=== PATIENT | female | born 1965 | race American Indian/Alaskan Native ===

== ENCOUNTER 2017-01-30 12:50 | Outpatient (CLI) | payer MEDICAID ==
[2017-01-30 13:21] LABS: Urine Drugs of Abuse Note Disclamer
== END 2017-01-30 12:51 | disposition home or self-care (01) ==
LOC: LAB 12:50
PROVIDERS: ATTEND Pain Medicine Interventional Pain Medicine
DX: Z51.81 Encounter for therapeutic drug level monitoring (principal); Z79.899 Other long term (current) drug therapy; Z79.891 Long term (current) use of opiate analgesic
CPT/HCPCS: 80307

== ENCOUNTER 2017-05-29 21:04 | Emergency (ER) | payer MEDICAID | END 2017-05-29 23:15 | disposition left against medical advice (07) | LOC: ED 21:04 | DX: M79.602 Pain in left arm (principal); Z53.21 Procedure and treatment not carried out due to patient leaving prior to being seen by health care provider ==